=== PATIENT | female | born 1960 | race Caucasian/White ===

== ENCOUNTER 2017-12-25 17:36 | Emergency (ER) | payer OTHER ==
[~2017-12-25] VITALS: Ht 165.1 cm; Wt 70.0 kg
[2017-12-25] MEDS ORDERED: SODIUM CHLORIDE 0.9% 500 ML IV ONE (18:43)
[2017-12-25] MEDS ORDERED: ONDANSETRON HCL 4MG/2ML VIAL IV STA (18:43)
[2017-12-25] MEDS ORDERED: LORAZEPAM 2MG/ML CPJ IV ONE (18:45)
[2017-12-25 19:28] LABS: BASOPHILS % 0.9 % (0.0-2.0); EOSINOPHILS % 0.5 % (0.0-5.0); HEMATOCRIT. 37.1 % (36.0-48.0); LYMPHOCYTES % 21.7 % (20.0-50.0); MEAN CORPUSCULAR HEMOGLOBIN 30.6 pg (28.0-32.0); MEAN PLATELET VOLUME 8.5 fl (7.4-10.4); MONOCYTES % 5.8 % (2.0-8.0); NEUTROPHILS % 71.1 % (40.0-76.0); PLATELET 260 x1000/uL (130-400); RED BLOOD CELL COUNT 4.27 mill/uL (4.2-5.4); RED CELL DISTRIBUTION WIDTH 13.4 % (11.6-14.6)
[2017-12-25 19:33] LABS: CHLORIDE 105 mEq/L (98-107)
[2017-12-25 19:35] LABS: PARTIAL THROMBOPLASTIN TIME 24.3 sec (23.4-31.0)
[2017-12-25] MEDS ORDERED: POTASSIUM CHLORIDE 20MEQ TABLET SR PO ONE (20:15)
[2017-12-25 21:45] VITALS: BP 137/78
== END 2017-12-25 21:47 | disposition home or self-care (01) ==
LOC: ER 18:00
DX: F41.1 Generalized anxiety disorder (principal); F43.0 Acute stress reaction; R06.00 Dyspnea, unspecified; I10 Essential (primary) hypertension; R00.0 Tachycardia, unspecified; E87.6 Hypokalemia
CPT/HCPCS: 36415; 71045; 80053; 83690; 84443; 84484; 85025; 85610; 85730; 93005; 96361; 96374; 96375; 99285; J2060; J2405; J7040; Z7610

== ENCOUNTER 2023-01-28 18:16 | Inpatient (IN) | payer MEDICAID, MEDICARE, OTHER ==
[~2023-01-28] VITALS: Ht 160 cm; Wt 68.0 kg
[2023-01-28 19:17] LABS: BASOPHILS % 0.2 % (0.0-2.0); EOSINOPHILS % 0.3 % (0.0-5.0); HEMATOCRIT. 45.3 % (36.0-48.0); HEMOGLOBIN. 15.3 g/dL (12.0-16.0); LYMPHOCYTES % 12.9 % (20.0-50.0); MEAN CORPUSCULAR HEMOGLOBIN 30.6 pg (28.0-32.0); MEAN CORPUSCULAR VOLUME 90.7 fL (81.0-99.0); MEAN PLATELET VOLUME 8.7 fl (7.4-10.4); MONOCYTES % 3.7 % (2.0-8.0); NEUTROPHILS % 82.9 % (40.0-76.0); PLATELET 205 x1000/uL (130-400); RED CELL DISTRIBUTION WIDTH 13.6 % (11.6-14.6)
[2023-01-28 19:30] LABS: CHLORIDE 101 mEq/L (98-107)
[2023-01-28 20:55] LABS: CLARITY URINE CLEAR (CLEAR); COLOR URINE YELLOW (YELLOW); KETONES URINE 1+ (NEGATIVE); LEUKOCYTE ESTERASE URINE TRACE (NEGATIVE); NITRITE URINE NEGATIVE (NEGATIVE); OCCULT BLOOD URINE NEGATIVE (NEGATIVE); PROTEIN URINE NEGATIVE (NEGATIVE); SPECIFIC GRAVITY URINE 1.019 (1.005-1.030)
[2023-01-28] MEDS ORDERED: MAGNESIUM/ALUMINUM HYDROXIDE/SIMETHICONE 30ML UDC PO NR (21:26)
[2023-01-28] MEDS ORDERED: LIDOCAINE HCL 20 MG/ML 100ML BOTTLE PO NR (21:26)
[2023-01-28] MEDS ORDERED: DICYCLOMINE 10 MG/5 ML ORAL SYR PO STA (21:26)
[2023-01-28] MEDS ORDERED: ONDANSETRON HCL 4MG/2ML INJ IV NR (21:30)
[2023-01-28] MEDS ORDERED: SODIUM CHLORIDE 0.9% 1,000 ML IV ONE (21:30)
[2023-01-29] MEDS ORDERED: PIPERACILLIN/TAZ 3.375G PREMIX 50 ML IV NR
[2023-01-29] MEDS ORDERED: MORPHINE SULFATE 4 MG/ML CPJ (NOT FOR IM USE) IV ONE (01:15)
[2023-01-29 08:00] VITALS: BP 128/81; PULSE 52; RESP 19; TEMP 97.6
[2023-01-29] MEDS ORDERED: ONDANSETRON HCL 4MG/2ML INJ IV PRN (09:15)
[2023-01-29] MEDS ORDERED: ACETAMINOPHEN 325MG TABLET PO PRN (09:15)
[2023-01-29 11:53] VITALS: BP 110/70; PULSE 60; RESP 18; TEMP 98.3
[2023-01-29 12:00] VITALS: BP 119/71; PULSE 55; RESP 20; TEMP 97.5
[2023-01-29] MEDS ORDERED: SERT-422 MT (13:33)
[2023-01-29] MEDS ORDERED: CALC-26 PO (13:33)
[2023-01-29] MEDS ORDERED: ATOR40TA70 MT (13:33)
[2023-01-29] MEDS ORDERED: MULT-624 MT (13:33)
[2023-01-29] MEDS ORDERED: PANT40TA51 MT (13:33)
[2023-01-29] MEDS ORDERED: ERGO1250 (13:33)
[2023-01-29] MEDS ORDERED: GABA-532 MT (13:33)
[2023-01-29] MEDS ORDERED: ENAL-79 MT (13:33)
[2023-01-29] MEDS ORDERED: CHOL2000 (13:33)
[2023-01-29] MEDS ORDERED: MIRT-89 MT (13:33)
[2023-01-29] MEDS ORDERED: DICL75TA5 MT (13:33)
[2023-01-29] MEDS ORDERED: *PATIENT'S OWN MEDICATION STORAGE XX SCH (14:00)
[2023-01-29 15:48] VITALS: BP 117/71; PULSE 55; TEMP 97.5; O2SAT 97
[2023-01-29 16:00] VITALS: BP 110/45; PULSE 53; RESP 53; TEMP 98.1
[2023-01-29] MEDS ORDERED: FAMOTIDINE 20MG TABLET PO SCH (21:00)
== END 2023-01-29 16:20 | disposition home or self-care (01) | DRG 249 ==
LOC: ER 18:16 → EDBEDREQ 01-29 01:41 → EDBEDREQTM 01-29 01:41 → ENRESERV 01-29 06:42 → 6EST 01-29 08:25
PROVIDERS: ADMIT Internal Medicine; ATTEND Emergency Medicine
DX: K52.9 Noninfective gastroenteritis and colitis, unspecified (principal); F41.9 Anxiety disorder, unspecified; K37 Unspecified appendicitis; K21.9 Gastro-esophageal reflux disease without esophagitis; I10 Essential (primary) hypertension
CPT/HCPCS: 36415; 74176; 80053; 81003; 84484; 85025; 93005; 99285; J2270; J2405; J2543

== ENCOUNTER 2025-04-05 06:25 | Inpatient (IN) | payer MEDICARE, MEDICAID ==
[~2025-04-05] VITALS: Ht 157.5 cm; Wt 65.3 kg
[~2025-04-05 06:25] MED LIST: ATOR40TA70 MT; CALC-26 PO; CHOL2000; DICL75TA5 MT; ENAL-79 MT; ERGO1250; GABA-1180 MT; MIRT-89 MT; MULT-624 MT; PANT40TA51 MT; SERT-422 MT
[2025-04-05 06:34] VITALS: O2SAT 98
[2025-04-05 07:26] LABS: BASOPHILS % 0.1 % (0.0-2.0); EOSINOPHILS % 0.6 % (0.0-5.0); HEMATOCRIT. 40.8 % (36.0-48.0); HEMOGLOBIN. 13.6 g/dL (12.0-16.0); LYMPHOCYTES % 8.6 % (20.0-50.0); MEAN PLATELET VOLUME 8.3 fl (7.4-10.4); MONOCYTES % 4.7 % (2.0-8.0); NEUTROPHILS % 86.0 % (40.0-76.0); PLATELET 209 x1000/uL (130-400); RED BLOOD CELL COUNT 4.44 mill/uL (4.2-5.4); RED CELL DISTRIBUTION WIDTH 14.9 % (11.6-14.6)
[2025-04-05 07:41] LABS: CREATININE 0.6 mg/dL (0.6-1.0)
[2025-04-05 07:42] LABS: UREA NITROGEN BLOOD 10 mg/dL (9-23)
[2025-04-05 07:44] LABS: ASPARTATE AMINOTRANSFERASE 21 IU/L (<34); BILIRUBIN DIRECT 0.3 mg/dL (<=3.0); BILIRUBIN TOTAL 1.0 mg/dL (0.1-1.0); PROTEIN TOTAL 6.5 g/dL (6.0-8.3)
[2025-04-05] MEDS: MORPHINE SULFATE 4 MG/ML INJ (FOR IV/IM USE) IV ONE ×2 (08:08→08:21)
[2025-04-05] MEDS: ONDANSETRON HCL 4MG/2ML INJ IV ONE (08:09)
[2025-04-05 11:08] VITALS: BP 144/87; PULSE 80; RESP 18; TEMP 36.9184
[2025-04-05 12:00] VITALS: BP 122/72; PULSE 83; RESP 18; TEMP 36.7; O2SAT 97
[2025-04-05] MEDS ORDERED: IPRATROPIUM/ALBUTEROL 0.5-3(2.5)MG/3ML NEB NEB PRN (13:30)
[2025-04-05] MEDS ORDERED: MAGNESIUM/ALUMINUM HYDROXIDE/SIMETHICONE 30ML UDC PO PRN (13:30)
[2025-04-05] MEDS ORDERED: DIPHENHYDRAMINE 50MG/ML VIAL IV PRN (13:30)
[2025-04-05] MEDS ORDERED: LEVOFLOXACIN 500MG PREMIX 100 ML IV SCH (13:30)
[2025-04-05] MEDS ORDERED: *PATIENT'S OWN MEDICATION STORAGE XX SCH (14:00)
[2025-04-05] MEDS: ACETAMINOPHEN 650MG/20.3ML UDC GT PRN (14:22)
[2025-04-05] MEDS: PANTOPRAZOLE SODIUM 40 MG/VIAL IV SCH (14:23)
[2025-04-05] MEDS: LEVOFLOXACIN 750MG PREMIX 150 ML IV SCH (14:25)
[2025-04-05] MEDS: ENOXAPARIN 40MG/0.4ML SYR SUBCUT SCH (14:28)
[2025-04-05] MEDS: MVI, ADULT NO.1 10 ML, FOLIC ACID 1 MG, THIAMINE HCL 100 MG in SODIUM CHLORIDE 0.9% 1,0... IV SCH (15:45)
[2025-04-05 16:00] VITALS: BP 130/71; PULSE 79; RESP 18; TEMP 36.9; O2SAT 96
[2025-04-05] MEDS: GABAPENTIN 300MG CAPSULE PO SCH (18:01)
[2025-04-05 20:00] VITALS: BP 134/66; PULSE 80; RESP 18; TEMP 36.7; O2SAT 96
[2025-04-05] MEDS: MIRTAZAPINE 15MG TABLET PO SCH (20:59)
[2025-04-05 21:09] LABS: TROPONIN I HIGH SENSITIVITY < 4 ng/L (3.0-34)
[2025-04-06] VITALS: BP 125/70; PULSE 87; RESP 18; TEMP 36.1; O2SAT 98
[2025-04-06 04:00] VITALS: BP 136/70; PULSE 75; RESP 18; TEMP 36.1; O2SAT 97
[2025-04-06 06:37] LABS: CLARITY URINE CLEAR (CLEAR); COLOR URINE YELLOW (YELLOW); GLUCOSE URINE NEGATIVE (NEGATIVE); KETONES URINE NEGATIVE (NEGATIVE); LEUKOCYTE ESTERASE URINE NEGATIVE (NEGATIVE); NITRITE URINE NEGATIVE (NEGATIVE); OCCULT BLOOD URINE NEGATIVE (NEGATIVE); PH URINE 6.5 (4.5-8.0); PROTEIN URINE NEGATIVE (NEGATIVE); SPECIFIC GRAVITY URINE 1.009 (1.005-1.030); UROBILINOGEN URINE 0.2 E.U./dL (0.2-1.0)
[2025-04-06 06:48] LABS: *AMPHETAMINES SCREEN URINE NEGATIVE (NEGATIVE); *BARBITURATES SCREEN URINE NEGATIVE (NEGATIVE); *BENZODIAZEPINES SCREEN URINE NEGATIVE (NEGATIVE); *COCAINE SCREEN URINE NEGATIVE (NEGATIVE)
[2025-04-06 06:49] LABS: CANNABINOID URINE SCREEN NEGATIVE (NEGATIVE); ECSTASY MDMA SCREEN URINE NEGATIVE (NEGATIVE); METHADONE URINE SCREEN NEGATIVE (NEGATIVE); OPIATES URINE SCREEN PRESUMPTIVE POSITIVE (NEGATIVE); PHENCYCLIDINE URINE SCREEN NEGATIVE (NEGATIVE)
[2025-04-06 08:00] VITALS: BP 139/64; PULSE 67; RESP 18; TEMP 36.5; O2SAT 97
[2025-04-06] MEDS: PANTOPRAZOLE 40MG DR TABLET PO SCH (09:53)
[2025-04-06] MEDS: SERTRALINE HCL 50MG TABLET PO SCH (09:53)
[2025-04-06 12:00] VITALS: BP 141/69; PULSE 67; RESP 18; TEMP 36.6; O2SAT 96
[2025-04-06 16:00] VITALS: BP 133/73; PULSE 79; RESP 18; TEMP 36.7; O2SAT 96
[2025-04-06 16:36] VITALS: BP 133/73; PULSE 79; RESP 18; TEMP 98.1
[2025-04-06] MEDS ORDERED: ATORVASTATIN CALCIUM 40MG TABLET PO SCH (21:00)
== END 2025-04-06 16:51 | disposition home or self-care (01) | DRG 392 ==
LOC: ER 06:25 → 8WST 09:06 → EDBEDREQ 09:15 → EDBEDREQSVC 09:15 → EDBEDREQTM 09:15 → ENRESERV 09:37
PROVIDERS: ADMIT Internal Medicine; ATTEND Internal Medicine
DX: K29.00 Acute gastritis without bleeding (principal); K52.9 Noninfective gastroenteritis and colitis, unspecified; I10 Essential (primary) hypertension; E86.0 Dehydration; K76.0 Fatty (change of) liver, not elsewhere classified; F32.A Depression, unspecified; F41.9 Anxiety disorder, unspecified; K21.9 Gastro-esophageal reflux disease without esophagitis; M19.90 Unspecified osteoarthritis, unspecified site; F19.90 Other psychoactive substance use, unspecified, uncomplicated; Z79.899 Other long term (current) drug therapy
CPT/HCPCS: 36415; 76705; 80048; 80076; 80305; 81003; 82550; 84484; 85025; 99285; J1650; J1956; J2270; J2405; J2470; J3411; J3490; J7030